=== PATIENT | female | born 1970 | race Caucasian/White ===

== ENCOUNTER 2025-08-06 16:21 | Outpatient (AMB) | payer OTHER, SELFPAY ==
--- OUTSIDE RECORDS SUMMARY | 2025-06-13 10:52 | XMS_ITS ---
Author Organization [facility] Address [address] [place], [place] [id number] Care Team Providers Care Cash Applications Coordinator Name Role Phone ANGI POLANCO Primary Care Provider REASON FOR VISIT vitamin D and results on thyroid Encounters Encounter Location Date Provider Diagnosis [facility] [address] [place] [phone] 06/13/2025 ANGI POLANCO PLAN OF TREATMENT Next Appt Details Provider Name:ANGI BRYANT, 12/17/2025 08:30:00 AM, [address] [place], [phone],
--- OUTSIDE RECORDS SUMMARY | 2025-06-13 12:37 | XMS_ITS ---
Author Organization [facility] Address [address] [place], [place] [id number] Care Team Providers Care Liner Roll Changer Name Role Phone ANGI POLANCO Primary Care Provider REASON FOR VISIT us Encounters Encounter Location Date Provider [place] [facility] [place] [address] [place] [address] 06/13/2025 ANGI POLANCO PLAN OF TREATMENT Next Appt Details Provider Name:ANGI BRYANT, 12/17/2025 08:30:00 AM, [address] [place], [phone],
--- OUTSIDE RECORDS SUMMARY | 2025-06-18 18:25 | XMS_ITS ---
Author Organization [facility] Address [address] [place], [place] [id number] Care Team Providers Care Senior Buyer Planner Name Role Phone ANGI POLANCO Primary Care Provider [phone] REASON FOR VISIT RE: Encounters Encounter Location Date Provider Diagnosis [facility] [address] [place] [phone] 06/18/2025 ANGI POLANCO PLAN OF TREATMENT Next Appt Details Provider Name:ANGI BRYANT, 12/17/2025 08:30:00 AM, [address] [place], [phone],
--- OUTSIDE RECORDS SUMMARY | 2025-06-18 18:25 | XMS_ITS ---
Author Organization [facility] Address [address] [place], [place] [id number] Care Team Providers Care Foot Gatherer Name Role Phone ANGI POLANCO Primary Care Provider REASON FOR VISIT RE:vitamin D and results on thyroid Encounters Encounter Location Date Provider Diagnosis [facility] [address] [place] [phone] 06/18/2025 ANGI POLANCO PLAN OF TREATMENT Next Appt Details Provider Name:ANGI BRYANT, 12/17/2025 08:30:00 AM, [address] [place], [phone],
--- OUTSIDE RECORDS SUMMARY | 2025-07-24 12:33 | XMS_ITS ---
Author Organization [facility] Address [address] [place], [place] [id number] Care Team Providers Care Corn Crop Supervisor Name Role Phone ANGI POLANCO Primary Care Provider REASON FOR VISIT bone density Encounters Encounter Location Date Provider Diagnosis [facility] [address] [place] [phone] 07/24/2025 ANGI POLANCO PLAN OF TREATMENT Next Appt Details Provider Name:ANGI BRYANT, 12/17/2025 08:30:00 AM, [address] [place], [phone],
--- NOTE | 2025-08-06 16:23 | A.OFFVIS_ITS ---
Intake Visit Reasons: 1 yr migraine Allergies No Known Allergies Allergy (Verified 08/02/25 14:14) Medication List - Last Reconciled 08/06/25 by Zacarias Valera MD fremanezumab-vfrm (Ajovy) mg subcut rizatriptan 10 mg PO DAILY PRN HPI Comments Details: Gets some flashes light and feels like crap rest of the day. They occur about 1- 2/ month and usually when Ajovy wears off. Using Rizatriptan 10mg at onset and it usually works. Previously , she took Migranol NS . Had gone > 4 months without any. Stress trigger and weather change. She has a history of migraines with visual aura since age around 16. She's been under the care of Dr. Parada and has previously failed prophylaxis with Depakote, Topamax and amitriptyline and tried sumatriptan for a while also. Since 2021, she has been on Ajovy injections monthly and has responded very well with only 3 or 4 visual migraines and only one with headache. She usually uses Migranal spray when necessary and sometimes doesn't feel well after it. She also has tightness in her neck muscles and the right traps for which she was getting trigger point injections. Currently her headaches are well controlled. She has no side effects from the Ajovy. [facility] Medical History (Updated 08/06/25 @ 16:29 by Zacarias Valera MD) Migraine with aura Review of Systems Const Details: Sleep:? Difficulty getting to sleep?denies.? Difficulty maintaining sleep?denies? .? Urge to move legs?denies.? Teeth grinding?denies.? Shouting or Kicking during sleep?denies.? Abnormal behavior during sleep?denies.? Excessive sleep?denies.? Snoring?denies.? Daytime sleepiness?denies.? ?? General/Constitutional:? Change in appetite?denies.? Chills?denies.? Fatigue?denies.? Fever?denies .? Weight gain?denies.? Weight loss?denies.? ?? Ophthalmologic:? Blurred vision?denies.? Diminished visual acuity?denies.? ?? ENT:? Stuffiness?denies.? Decreased hearing?denies.? Dry mouth?denies.? Ear pain?denies.? Nosebleed?denies.? Ringing in the ears?denies.? Sinus pain?denies .? Sore throat?denies.? Swollen glands?denies.? ?? Endocrine:? Cold intolerance?denies.? Excessive thirst?denies.? Frequent urination? denies.? Heat intolerance?denies.? ?? Respiratory:? Shortness of breath?denies.? Chest pain?denies.? Cough?denies.? ?? Breast:? Breast lump?denies.? Nipple discharge?denies.? ?? Cardiovascular:? Chest pain at rest?denies.? Chest pain with exertion?denies.? Claudication?denies.? Dizziness?denies.? Fluid accumulation in the legs?denies.? Irregular heartbeat?denies.? Palpitations?denies.? ?? Gastrointestinal:? Abdominal pain?denies.? Constipation?denies.? Diarrhea?denies.? Difficulty swallowing?denies.? Heartburn?denies.? Nausea?denies.? Rectal bleeding?denies.? ?? Hematology:? Easy bruising?denies.? Prolonged bleeding?denies.? ?? Genitourinary:? Frequent urination?denies.? Urgency?denies.? Incontinence?denies.? Erectile Dysfunction?denies.? ?? Musculoskeletal:? Neck pain?denies.? Back pain?denies.? Muscle aches?denies.? Painful joints?denies.? Sciatica?denies.? Weakness?denies.? ?? Podiatric:? Difficulty walking?denies.? Foot numbness?denies.? ?? Neurologic:? Difficulty swallowing?denies.? Balance difficulty?denies.? Coordination? normal.? Difficulty speaking?denies.? Dizziness?denies.? Fainting?denies.? Gait abnormality?denies.? Headache?admits.? Loss of strength?denies.? Loss of use of extremity?denies.? Low back pain?denies.? Memory loss?denies.? Seizures?denies.? Tics?denies.? Tingling/Numbness?denies.? Transient loss of vision?denies.? Tremor?denies.? ?? Psychiatric:? Anxiety?denies.? Auditory/visual hallucinations?denies.? Delusions?denies .? Depressed mood?denies.? Stressors?denies.? Substance abuse?denies.? Suicidal thoughts?denies.? ?? Physical Exam Neuro Other: Neurological: ? Abnormal neurological findings:??none.? Mental Status:?alert and oriented X 3,?Normal attention, orientation, memory and affect.? Cranial Nerves:?Pupils are equal, round and reactive to light. Fundoscopy shows normal disc bilaterally. External occular muscles are intact. Visual burgos are full, no ptosis. Face is symmetrical, no facial weakness or droop. Facial sensations are normal. Tongue protrudes in midline. Palate elevates symmetrically. Shoulder shrugging is normal..? Motor Examination:?Normal muscle tone, bulk and strength,?No atrophy or fasciculations,?No drift of the extended upper extremities,?Deep tendon reflexes are 2+?,?Plantars are flexor?.? Straight Leg Raising:?90 degrees.? Sensory Exam:?Normal light touch, temperature, pinprick, vibration and joint-position sensations?,?Rhomberg sign is absent.? Coordination:?no ataxia,?no titubation,?cdrmtb-hl-cjzv, udwv-opxe-hhoz test and rapid alternating movements were normal.? Gait Exam:?Within normal limits.? Cerebellar Signs:?Yekrea-mw-alzp and wslk-fd-zcgf is normal,?no dysdiadochokinesia?.? Extrapyramidal System:?No tremor, rigidity with normal facial expressions,?No bradykinesia, no bradyphrenia. Normal arm swing and posture. No propulsion or retropulsion.? Speech:?Normal,?no dysphasia or dysarthria..? Mini Mental Status Exam: ? Level of Consciousness:?Alert.? Orientation:?Knows correct year, month, date, day and season,?Knows correct city, county and state. Knows correct location and floor.? Registration:?Able to register 3 objects.? Attention:?Serial 7's performed accurately.? Recall:?Able to recall 3 out of 3 objects.? Language:?Normal spontaneous speech, fluency, repetition,naming, comprehension, reading and writing.? Total Score:?30/30.? General Examination: ? GENERAL APPEARANCE:??normal,?in no acute distress.? HEART:??S1, S2 normal,?no murmurs.? LUNGS:??clear anteriorly and posteriorly.? MUSCULOSKELETAL:??normal.? EXTREMITIES:??no edema.? PSYCH:??alert, oriented,?cognitive function intact,?cooperative with exam.? Assessment & Plan Assessment & Plan (1) Migraine with aura: Code(s): G43.109 - Migraine with aura, not intractable, without status migrainosus Category: Medical Plan Continue current meds Medications: New fremanezumab-vfrm (Ajovy) 225 mg (1.5 mL) subcut QMONTH 4.5 mL 3RF 90 days rizatriptan 10 mg PO DAILY PRN 27 tabs 3RF migraine 90 days Coding Level of Care Code Est Pt Level 4 (69943) Diagnoses Migraine with aura G43.109
--- OUTSIDE RECORDS SUMMARY | 2025-08-06 18:40 | XMS_ITS | Clinical Summary ---
Author Organization [facility] Address [address] [place] [id number] Phone Care Team Providers Care Stone Derrickman And Rigger Name Role Phone Pcp, Unknown Primary Care Provider Unavailabl e Encounters Date Type Department Care Team Description 07/17/2025 8:51 AM EDT - 07/17/2025 11:59 PM EDT Hospital Encounter [facility] [address] [place] [phone] Kelsi Luciano MD Discharge Disposition: Home or Self Care from Last 3 Months Social History Tobacco Use Types Packs/Day Years Used Date Smoking Tobacco: Never Assessed Education Answer Date Recorded Are you interested in more education? Not on adriana e 07/18/2025 Are you concerned about learning? Not on file 07/18/2025 No 07/18/2025 No 07/18/2025 Digital Access Answer Date Recorded No 07/18/2025 No 07/18/2025 Reliable internet access at home? Not on file 07/18/2025 Device with a working camera? Not on file Comments Unknown Sex and Gender Information Value Date Recorded Sex Assigned at Not on file Legal Sex Female 8:28 AM EDT Gender Identity Not on file Sexual Orientation Not on file Plan of Treatment Not on file Medical Devices Not on file Procedures Procedure Name Priority Date/Time Associated Diagnosis Comments ANATOMIC PATHOLOGY Routine 07/17/2025 12 :00 AM EDT from Last 3 Months Results * Anatomic Pathology (07/17/2025 12:00 AM EDT) 07/17/2025 07/18/2025 8:5 3 AM EDT Narrative SEE NARRATIVE - 07/19/2025 1:25 PM EDT [address] [address] Sludge Filtration Attendant: David Steele MD Surgical Pathology Report FINAL PATHOLOGIC DIAGNOSIS: LEFT EYE CARUNCLE, EXCISION: Epidermal inclusion cyst, less than 1 mm. Electronically Signed Out By David Steele MD By his/her signature above, the pathologist listed as making the Final Diagnosis certifies that he/she has personally reviewed this case and confirmed or corrected the diagnosis. CLINICAL HISTORY Cyst of left eye caruncle SPECIMENS SUBMITTED: A: LEFT EYE CARUNCLE, EXCISION GROSS DESCRIPTION LEFT EYE CARUNCLE, EXCISION: Received in formalin is a 0.2 x 0.1 x 0.1 cm irregular portion of calderon-goss soft tissue which is submitted in toto in a single cassette labeled A1. Grossed by: ZANA Watkins, PA([facility]) [id number] 07/18/2025 Grossing Staff: [id number] Patient Name: MIRANDA CADE : 1970 (Age: 54) Sex: F Institution[facility] Location: [facility] Date of Operation: 07/17/2025 Date of Reported: 07/19/2025 13:25 Results To: Kelsi Luciano MD, BA Kelsi Luciano MD PATHOLOGY ORDERABLES Final Resu lt SEE NARRATIVE from Last 3 Months Insurance SANYA CAICEDO [id number] [facility] TOTAL CHOICE INDEMNITY SANYA FUNES [id number] [employer] TOTAL CHOICE INDEMNITY [employer] [facility] TOTAL CHOICE INDEMNITY [employer] [facility] TOTAL CHOICE INDEMNITY [facility] TOTAL CHOICE INDEMNITY [facility] TOTAL CHOICE INDEMNITY Care Teams Stone Derrickman And Rigger Relationship Specialty Start Date End Date Pcp, Unknown PCP - General 07/18/25 Additional Source Comments The information contained in this document represents components of the legal health record. It is not the complete legal health record.[facility]
--- OUTSIDE RECORDS SUMMARY | 2025-08-06 18:41 | XMS_ITS | Clinical Summary ---
Author Organization [employer] [facility] Address [address] [facility] [place] [address] Care Team Providers Care Sed Special Education Teacher Name Role Phone Pcp, No Primary Care Provider [phone] Allergies No known active allergies Medications betamethasone dipropionate (DIPROSONE) 0.05 % lotion APPLY TO SCALP ONCE TO TWICE DAILY NEEDED 11/21/19 24 Active Ajovy Autoinjector 225 mg/1.5 mL atIn INJECT 1 PEN SUBCUTANEOUSLY ONCE A MONTH DIRECTED 11/13/19 24 Active rizatriptan (MAXALT) 10 MG tablet TAKE 1 TABLET BY MOUTH DAILY NEEDED FOR MIGRAINE FOR 30 DAYS 05/03/20 25 Active Active Problems No known active problems Encounters Date Type Department Care Team Description 05/08/2025 5:30 PM EDT Office Visit Jen MD957 [address] [place] [address] Olamide Sevilla NP Acute pharyngitis, unspecified etiology (Primary Dx); Acute nasopharyngitis (common cold) from Last 3 Months Social History Tobacco Use Types Packs/Day Years Used Date Smoking Tobacco: Never Smokeless Tobacco: Never PHQ-2 Answer Date Recorded PHQ-2 Total Score 0 05/08/2025 Comments No Sex and Gender Information Value Date Recorded Sex Assigned at Not on file Legal Sex Female 3:52 PM EDT Gender Identity Not on file Sexual Orientation Not on file Last Filed Vital Signs Vital Sign Reading Time Taken Comments Blood Pressure 98/64 05/08/2025 6:04 PM EDT Pulse 78 05/08/2025 6:04 PM EDT Temperature 36.5 C (97.7 F) 05/08/2025 6:04 PM EDT Respiratory Rate 14 05/08/2025 6:04 PM EDT Oxygen Saturation 98% 05/08/2025 6:04 PM EDT Inhaled Oxygen Concentration - - Weight 56.7 kg (125 lb) 04/18/2020 5:01 PM EDT Height - - Body Mass Index - - Plan of Treatment Health Maintenance Due Date Last Done Comments Colorectal Cancer: COLONOSCO PY Screening every 10 yrs (or Modifier) 1971 Hepatitis C Virus Infection in Adolescents and Adults: Screening (or Modifier) ([facility]) 1989 CLEMENTE Screening: Once using [facility] Questionnaire for Adults with Conditions or high BMI([facility]) 1989 SDOH Screening Reminder: Brenda robertson for all adults ([facility]) 1989 DTaP/Tdap/Td Vaccines ([facility]) (1 - Tdap) 1990 Cervical Cancer Screenin 1-65 yrs of age (or Modifier) 1992 Cervical Cancer Screening: P ap every 3 yrs pts age 21-65 1992 Cervical Cancer: Pap Screeni ng with Modifier timing ([facility]) 1992 Cervical Cancer: hrHPV alone or with cotesting Pap for Pts 30-65yrs screening every 5yrs ([facility]) 1992 Colorectal Cancer Screening 45 -75 Yrs (or HM Modifier) 2016 Colorectal Cancer: FLEXIBLE SIGMOIDOSCOPY Screening every 5 yrs 2016 Colorectal Cancer: Fecal Imm unochemical Test (FIT) Annually [facility] 2016 Colorectal Cancer: High-sens itivity gFOBT Screening Annually [facility] 2016 Colorectal Cancer: Stool Col oguard Screening every 3 yrs 2016 Colorectal Cancer:CT Colonog herb Screening every 5 yrs 2016 Breast Cancer: Screening Brenda marcelo age 50-74 yrs (or HM Modifier)([facility]) 2021 Pneumococcal Vaccination Scr eening: Patients 50+ yrs of age ([facility]) (1 of 1 - PCV) 2021 Zoster/Shingles Vaccine Seri es Screening: Adults aged 18+ yrs (or HM Modifiers)([facility]) (1 of 2) 2021 Flu Vaccination: Yearly for ages 18mos through 64 years (or Modifier)([facility]) 05/24/2025 COVID-19 Vaccine Screening: Initial Series and Booster Status ([facility]) ( season) 2025 Depression: Screening Annual ly using PHQ-2/9 in Adults 18 yrs or above (or HM Modifier)([facility]) 05/08/2026 05/08/2025 Medical Devices Not on file Procedures Procedure Name Priority Date/Time Associated Diagnosis Comments STREP MOLECULAR POCT Routine 05/08/2025 6:55 PM EDT Acute pharyngitis, unspecified etiology from Last 3 Months Results * Strep Molecular POCT (05/08/2025 6:55 PM EDT) Pathologist [facility] POC MOLECULAR STREP A Negative Negative, Invalid, Not Tested, ERRONEOUS [place] [id number] INTERNAL CONTROLS VALID Yes--Test working appropriately [place] [id number] Expiration Date 10/08/26 [place] [id number] Lot Number [id number] [facility] [id number] TEST BRAND NAME_ STREP MOLECULAR ID Now Strep [place] [id number] Throat 05/08/2025 6:55 PM EDT us Olamide Sevilla HOME TEACHING GRADES 9 THRU 12 TEACHER POINT OF CARE TEST ORDERABLES Fi nal Result [place] [id number] [address] [place] [phone], from Last 3 Months [facility] Care Teams Sed Special Education Teacher Relationship Specialty Start Date End Date Pcp, No PCP - General Family Medicine 05/08/25
--- OUTSIDE RECORDS SUMMARY | 2025-08-06 18:41 | XMS_ITS ---
Author Name [facility] Organization Unknown Problems Problem Status Onset Date Problem Type Date of Resoluti on Source Pain in right ankle and joints of right foot active EncounterDiagnosisAct HHCCT Encounters Encounter Type Encounter Reason Primary Diagnosis Location Date Ambulatory [facility] 09/04/2024 Ambulatory Pain in right ankle and joints of right foot Pain in right ankle and joints of right foot [email or web address] 09/04/2024 Care Team Organization Name Specialty Phone Email Start Date End Da te [email or web address] 09/06/2024 01/09/2025 [email or web address] ANGI POLANCO Primary Care 09/04/2024 [email or web address] 08/14/2024
--- OUTSIDE RECORDS SUMMARY | 2025-08-06 18:41 | XMS_ITS | Clinical Summary ---
Author Organization [facility] Address [address] [place] [address] Care Team Providers Care Patrol Mother Name Role Phone Danie Milner MD Primary Care Provider [phone] Allergies No known active allergies Social History Tobacco Use Types Packs/Day Years Used Date Smoking Tobacco: Never Assessed Comments Unknown Sex and Gender Information Value Date Recorded Sex Assigned at Not on file Legal Sex Female 2:14 PM EDT Gender Identity Not on file Sexual Orientation Not on file Plan of Treatment Health Maintenance Due Date Last Done Comments Hepatitis C Virus Screening 1971 HIV Screening 1984 DTaP/Tdap/Td Vaccines (1 - Tdap) 1990 Hepatitis B Vaccines (1 of 3 - 19+ 3-dose series) 08/24 Pap Smear (Ages 21-65) 1992 Mammogram 2011 Colonoscopy 2016 Pneumococcal Vaccines 50+ (1 of 1 - PCV) 2021 Zoster (Shingles) Vaccine (1 of 2) 2021 Influenza Vaccine 05/24/2025 COVID-19 Vaccine ( - 2023- season) 2025 Insurance [facility] Care Teams Patrol Mother Relationship Specialty Start Date End Date Danie Milner MD [address] [place] [address] PCP - General Internal Medicine 09/04/24
--- OUTSIDE RECORDS SUMMARY | 2025-08-06 18:41 | XMS_ITS | Patient Health Record ---
Author Organization [facility] Address [address], [place] [id number] Care Team Providers Care Cardiovascular Physician Assistant Name Role Phone ANGI POLANCO Primary Care Provider [phone] ALLERGIES Allergen (clinical drug ingredient) Drug/Non Drug Allergy documented on EMR Reaction Allergy Type Onset Date Status Pollen Pollen Unknown Allergy Active REASON FOR REFERRAL Reason Referral Dr. Sourav Turner [place] orthopedic tech for grade 1 tibial diaphysis stress and pain send copy of note and x-ray and MRI to him Diagnosis 1 Pain in right hood ( M79.661) Referral Organization [facility] Referring Provider First Name ANGI Referring Provider Last Name COLLIN Referring Provider Speciality Internal M edicine Referred Provider SUSI MANN Notes Chelle BELLul ing 08/14/2024 01:00:44 PM > non bs, fwd to ARABELLA Ramos Judy P Admin 08/14/2024 02:21:36 PM > Appt is at [address] [facility] [address] phone #[phone]. Referral Priority Urgent Referral Appointment Date 09/04/2024 MEDICATIONS Medication SIG (Take, Route, Frequency, Duration) Notes Start Date End Date Status Migranal 4 MG/ML 1 spray(s) intranasa lly every 15 minutes as needed Activ e Ajovy 225 MG/1.5ML 1.5 mL Subcutaneous once per month Active Rizatriptan Benzoate 10 MG 1 tablet Oral ly Once a day for 30 day(s) Active Readi-Cat 2 2 % drink 450ml 6hours b efore exam and then the other 450ml 90 min before exam Orally 05/31/2025 Active SOCIAL HISTORY Tobacco Use: Social History Observation Description Date Details (start date - stop date) Never Smoker NA - NA Sex Assigned At : Social History Observation Description Sex Assigned At Unknown Smoking Question Answer Notes Are you a: never smoker PROBLEMS Problem Type ICD Code Onset Dates Problem Status W/U Status Risk SNOMED Code Notes Problem Thyroid nodule (241.0) Active confirmed Thyroid nodule (704325395) Problem Thyroid nodule (E04.1) Active confirmed 131627904 Problem Disorder of lipoprotein metabolism, 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) (966288028) VITAL SIGNS Blood pressure diastolic 68 mm Hg 05/28/2025 Height 64.25 in 05/28/2025 Blood pressure systolic 106 mm Hg 05/28/2025 Weight 138 lbs 05/28/2025 BMI 23.50 kg/m2 05/28/2025 Encounters Encounter Location Date Provider Diagnosis [address] [address] 08/06/2024 ANGI POLANCO Lower extremity pain , right M79.[address] [address] 08/14/2024 ANGI POLANCO Pain in right hood M79.[address] [address] 08/15/2024 ANGI POLANCO [address] [address] 08/17/2024 ANGI POLANCO [address] [address] 11/29/2024 ANGI POLANCO [address] [address] 11/29/2024 ANGI POLANCO [facility] [address] [place] [address] 01/14/2025 ANGI POLANCO [address] [address] 02/08/2025 ANGI POLANCO [address] [address] 04/22/2025 ANGI POLANCO [address] [address] 05/28/2025 ANGI POLANCO Encntr for general adult medical exam w/o abnormal findings Z00.00 ; Disorder of lipoprotein metabolism, unspecified E78.9 ; Nontoxic single thyroid nodule E04.1 ; History of headache Z87.898 ; Encounter for screening mammogram for malignant neoplasm of breast Z12.31 ; Osteoporosis screening Z13.820 and Lower abdominal pain R10.30 [facility] [address] [place] [address] 05/30/2025 [facility] [address] [place] [address] 05/31/2025 ANGI POLANCO [facility] [address] [place] [address], [place] [address] 06/06/[address] [facility] [address] [place] [address], [place] [address] 06/06/2025 ANGI POLANCO [facility] [address] [place] [address], [place] [address] 06/06/[address] [facility] [address] [place] [address], [place] [address] 06/13/2025 ANGI POLANCO [facility] [address] [place] [address], [place] [address] 06/13/2025 ANGI POLANCO [facility] [address] [place] [address], [place] [address] 06/18/[address] [facility] [address] [place] [address], [place] [address] 06/18/[address] [address] 07/24/2025 ANGI POLANCO ASSESSMENTS Encounter Date Diagnosis Assessment Notes Treatment Notes Treatment Clinical Notes Section Notes 08/06/2024 Lower extremity pain, right (ICD-10 - M79.604) 08/14/2024 Pain in right hood (ICD-10 - M79.661) 05/28/2025 Disorder of lipoprotein metabolism, unspecified (ICD-10 - E78.9) Low-fat Mediterranean diet recommended. Cardiovascular exercise daily. Body mass index goal less than 27. Check total cholesterol goal less than 200 LDL less than 100 check CRP for restratification 05/28/2025 Encntr for general adult medical exam w/o abnormal findings (ICD-10 - Z00.00) Sign stable review of systems as above physical exam as above. Check full labs check EKG. Colonoscopy up-to-date. Will check CT of abdomen pelvis. Patient due for physical in 1 year. Rx given to patient for bone density 05/28/2025 Nontoxic single thyroid nodule (ICD-10 - E04.1) Stable check TSH T4 physical exam review of systems unchanged 05/28/2025 History of headache (ICD-10 - Z87.898) Above medication. Good relief with as needed meds symptoms are stable and occurring relatively infrequently 05/28/2025 Encounter for screening mammogram for malignant neoplasm of breast (ICD-10 - Z12.31) Mammogram up-to-date January 2025 recheck in 1 year 05/28/2025 Osteoporosis screening (ICD-10 - Z13.820) Rx given to patient for bone density calcium 1200 today vitamin D 800 today. Alcohol moderation weightbearing exercise daily 05/28/2025 Lower abdominal pain (ICD-10 - R10.30) Check labs including CBC LFTs amylase lipase check CT abdomen pelvis can use MiraLAX as needed. Increase fiber intake. Check full labs check TTG antibody if symptoms persist recommend GI consult PLAN OF TREATMENT Pending Test Test Name Order Date US Thyroid 04/18/2024 MRI right tib/fib 05/29/2024 Future Test Test Name Order Date Sedimentation [id number] Next Appt Details Provider Name:ANGI BRYANT, 12/17/2025 08:30:00 AM, [address] [place], [address], Insurance Providers Payer Name Payer Address Payer Phone Subscriber Number Group Number Insured Name Patient Relationship to Insured Coverage Start Date Coverage End Date [facility] [address] [place] [id number] [facility] ANGIE VILLARREAL Self - patient is the insured MEDICAL (GENERAL) HISTORY Medical History History ICD Code allergies headaches irritable bowel syndrome migraine headache hood splints Rt 3 mm thyroid nodule 07/06-[facility] thyro id. TFTs nl. [id number], M1 Mammogram December [address] Beltre Thyroid ultrasound May 2022 single no dule right and left no change Bone scan May 2024 negative MRI tibia fibula July 2020 for medial tibial stress syndrome [facility] July [address]23 Dr[address] Patel Surgical History Surgery Date(Month/Year) Right breast benign 2018 Left miniscus tear 06/2017 Right breast benign tumor 1992 Leep procedure Hospitalization History Reason Date(Month/Year)
== END 2025-08-06 16:36 | disposition home or self-care (01) ==
LOC: HO.HSM 16:22
PROVIDERS: PCP Internal Medicine; Referring Provider Internal Medicine; Visit Provider Psychiatry & Neurology Neurology
DX: G43.109 Migraine with aura, not intractable, without status migrainosus (principal)
CPT/HCPCS: 99214